=== PATIENT | female | born 1985 | race African-American/Black ===

== ENCOUNTER 2023-03-03 21:58 | Emergency (ER) | payer SELFPAY ==
[~2023-03-03 21:58] MED LIST: Dextrose 5% in Water 1,000 ML BAG ONE
[2023-03-03] MEDS ORDERED: Lorazepam 2 MG/ML VIAL ONE (22:31)
[2023-03-03] MEDS ORDERED: Thiamine HCl 200 MG/2 ML VIAL ONE (22:31)
[2023-03-03 23:02] LABS: Hematocrit 38.6 % (36.0-47.0); Hemoglobin 11.6 g/dL (12.0-16.0); Lymphocytes 40 % (21-51); MDiff Complete? YES; Macrocytosis MODERATE=16-30 cells (100X) (0-5/hpf); Mean Corpuscular Hemoglobin 33.7 pg (27.0-31.0); Mean Corpuscular Volume 112.5 fl (78.0-98.0); Mean Platelet Volume 7.4 fL (7.4-10.4); Monocytes 7 % (0-10); Neutrophil 53 % (42-75); Platelet Adequacy Comment Appears Adequate; Platelet Count 145 10x3/uL (130-400); RBC Distribution Width 20.2 % (11.5-14.5); Red Blood Cell (RBC) Count 3.43 mill/uL (4.20-5.40); White Blood Cell (WBC) Count 6.5 10x3/uL (4.8-10.8)
[2023-03-03 23:13] LABS: Acetaminophen Less than 10 mcg/mL (10.0-30.0); Alcohol 39.5 mg/dL (Less than 10); Lipase 76 U/L (8-78); Magnesium 1.3 mg/dL (1.6-2.6); Phosphorus 3.2 mg/dL (2.3-4.7); Salicylate Less than 8.0 mg/dL (15.0-30.0)
[2023-03-03 23:15] LABS: ALT (SGPT) 73 U/L (8-55); AST (SGOT) 417 U/L (5-34); Albumin 4.2 g/dL (3.5-5.0); Alkaline Phosphatase 236 U/L (40-110); Anion Gap 35 mmol/L (10-20); BUN (Urea Nitrogen) 7 mg/dL (7.0-18.7); Bilirubin, Total 2.3 mg/dL (0.2-1.2); Calc. Creatinine Clearance 0 mL/min (70-130); Calcium 8.6 mg/dL (7.8-10.44); Chloride 107 mmol/L (98-107); Estimated GFR 74; Globulin 3.6 g/dL (2.4-3.5); Glucose 149 mg/dL (70-105); Potassium 3.5 mmol/L (3.5-5.1); Protein, Total 7.8 g/dL (6.0-8.3); Sodium 146 mmol/L (136-145)
[2023-03-03 23:16] LABS: Carbon Dioxide 8 mmol/L (22-29)
[2023-03-03] MEDS ORDERED: Magnesium 2 GM/50 ML BAG (IN WATER) ONE (23:29)
[2023-03-03] MEDS ORDERED: Ondansetron PF 4 MG/2 ML Vial ONE (23:29)
[2023-03-03 23:40] LABS: Bilirubin Small (Negative); Blood, Urine Moderate (Negative); Clarity Clear (Clear); Glucose, Urine (Dipstick) Negative (Negative); Ketone, Urine 15 mg/dL (Negative); Leukocyte Trace (Negative); Nitrite Negative (Negative); Protein, Urine (Dipstick) 100 mg/dL (Neg-Trace); Specific Gravity, Urine 1.021 (1.002-1.036); pH, Urine 5.5 (5.0-9.0)
[2023-03-03 23:41] LABS: Amphetamine Not Detected (NotDetected); Bacteria/HPF Rare-Few HPF (None Seen); Barbiturates Screen Not Detected (NotDetected); Benzodiazepine Screen Not Detected (NotDetected); CAUTI Indications for Culture Alt mental st,lethar; Cocaine Metabolite Screen Not Detected (NotDetected); Methadone Not Detected (NotDetected); Methamphetamine Not Detected (NotDetected); Opiate Screen Not Detected (NotDetected); Oxycodone Screen Not Detected (NotDetected); Phencyclidine (PCP) Not Detected (NotDetected); Pregnancy Test - Urine (BHCG) Negative (Negative); Pregu Control Background? CLEAR/WHITE (CLR/WHITE); Pregu Control Bar Appear? YES (CONTROL BAR); RBC/HPF None Seen HPF (0-3); Specific Gravity 1.021 (1.002-1.036); THC/Cannabinoid Screen Not Detected (NotDetected); Tricyclic Screen Not Detected (NotDetected); Urine Culture Reflex No No
[2023-03-04] LABS: Base Excess-Venous -15.6 mmol/L (-2.0 to 3.0); Bicarbonate (HCO3v) 11.1 mmol/L (22.0-28.0); CO2 Tension (PvCO2) 28.6 mmHg (42.0-51.0); Calcium, Ionized 1.04 mmol/L (1.15-1.33); Chloride 110 mmol/L (98-107); Hemoglobin - Calc 13.7 g/dL (12.0-16.0); Potassium 3.5 mmol/L (3.5-5.1); Sodium 145 mmol/L (138-145); vO2 Saturation-calc 75.4 % (60.0-85.0)
[2023-03-04] MEDS ORDERED: Sodium Chloride 0.9% 2,000 ML ONE (00:02)
[2023-03-04] MEDS ORDERED: Lorazepam 2 MG/ML VIAL ONE (01:40)
[2023-03-04] MEDS ORDERED: Sodium Bicarb 50 MEQ/50 ML VIAL ONE (02:49)
== END 2023-03-04 03:15 | disposition short-term general hospital (02) ==
LOC: MADERS 21:58
DX: F10.139 Alcohol abuse with withdrawal, unspecified (principal); E87.20 Acidosis, unspecified; I10 Essential (primary) hypertension; Z79.899 Other long term (current) drug therapy
CPT/HCPCS: 36416; 80053; 80306; 80307; 81001; 81025; 82330; 82803; 83690; 83735; 84100; 85025; 93005; 94760; 96365; 96366; 96374; 96375; J2060; J2405; J3411; J3475; J7050; J7070